=== PATIENT | male | born 1955 | race Caucasian/White ===

== ENCOUNTER 2017-09-26 16:00 | Inpatient (IN) | payer MEDICAID, OTHER ==
[~2017-09-26] VITALS: Ht 175.3 cm; Wt 81.0 kg
[~2017-09-26 16:00] MED LIST: APIX5TAB PO; ATEN-60 PO
[2017-09-26 16:56] LABS: Basophils # (auto) 0 uL; Basophils % (auto) 0.2 % (0.0-2.0); Eosinophils # (auto) 0 uL; Hematocrit 43.4 % (41.0-53.0); Hemoglobin 14.9 g/dL (13.5-17.5); Lymphocytes # (auto) 0.6 uL; Lymphocytes % (auto) 5.5 % (10.0-50.0); Mean Corpuscular Hemoglobin 30.3 pg (28.0-32.0); Mean Corpuscular Hgb Conc. 34.4 g/dL (32.0-36.0); Mean Corpuscular Volume 88.2 fL (80.0-100.0); Monocytes # (auto) 0.6 uL; Monocytes % (auto) 5.2 % (0.0-12.0); Neutrophils # (auto) 9.8 uL; Neutrophils % (auto) 89.1 % (37.0-80.0); Platelet Count (auto) 134 10^3/uL (140-450); Red Blood Cells 4.92 10^6/uL (4.5-5.90); Red Cell Distribution Width 14.1 % (11.8-14.3)
[2017-09-26 17:12] LABS: Alanine Aminotransferase 212 U/L (16-61); Albumin 3.2 g/dL (3.4-5.0); Anion Gap 16 (5-15); Aspartate Aminotransferase 352 U/L (15-37); BUN/Creatinine Ratio 26.1; Blood Alcohol < 3.0 mg/dL (0-5); Blood Urea Nitrogen 18 mg/dL (7-18); Calcium 8.2 mg/dL (8.5-10.1); Carbon Dioxide 22 mmol/L (21-32); Chloride 84 mmol/L (98-107); GFR African American 150 mL/min; GFR Non-African American 124 mL/min; Glucose 134 mg/dL (74-106); Magnesium 1.7 mg/dL (1.6-2.6); Potassium 3.2 mmol/L (3.5-5.1); Sodium 122 mmol/L (136-145)
[2017-09-26 17:15] LABS: Alkaline Phosphatase 103 U/L (45-117); Bilirubin, Total 2.1 mg/dL (0.2-1.0)
[2017-09-26] MEDS ORDERED: THIAMINE INJ 100 MG, MULTIPLE VITAMIN 10 ML, FOLIC ACID 1 MG, MAGNESIUM SULF SDV 50% 8 ... IV STA ×5 (19:16)
[2017-09-26] MEDS ORDERED: SODIUM CHLORIDE 0.9% 1,000 ML IV ONE (19:30)
[2017-09-26] MEDS ORDERED: MVI in SODIUM CHLORIDE 0.9% 1,010 ML ONE (20:15)
[2017-09-26 22:21] LABS: Urine Bacteria NONE SEEN /hpf (None Seen); Urine Blood 2+ /uL (Negative); Urine Mucus FEW (None Seen); Urine Specific Gravity 1.027 (1.001-1.035); Urine WBC 10 /hpf (0 - 3)
[2017-09-26 22:32] LABS: Alcohol, Urine < 3.0 mg/dL (0-5); Amphetamine Screen, Urine NEGATIVE (NEGATIVE); Barbiturate Scree,Urine NEGATIVE (NEGATIVE); Benzodiazephine Screen, Urine NEGATIVE (NEGATIVE); Cannabinoid Screen, Urine NEGATIVE (NEGATIVE); Cocaine Screen, Urine NEGATIVE (NEGATIVE); Opiate Scree,Urine NEGATIVE (NEGATIVE); Phencyclidine Screen, Urine NEGATIVE (NEGATIVE)
[2017-09-26] MEDS ORDERED: POTASSIUM CHL 20 Meq TABLET PO ONE ×2 (23:00→23:02)
[2017-09-27] MEDS ORDERED: ONDANSETRON HCL 4 MG/2 ML VIAL IV PRN (02:45)
[2017-09-27] MEDS ORDERED: SODIUM CHLORIDE 0.9% 1,000 ML IV SCH (05:00)
[2017-09-27 05:34] VITALS: BP 145/93
[2017-09-27 06:51] LABS: Basophils # (auto) 0 uL; Basophils % (auto) 0.1 % (0.0-2.0); Eosinophils # (auto) 0 uL; Eosinophils % (auto) 0.1 % (0.0-7.0); Hematocrit 42.2 % (41.0-53.0); Hemoglobin 14.4 g/dL (13.5-17.5); Lymphocytes # (auto) 0.7 uL; Lymphocytes % (auto) 8.4 % (10.0-50.0); Mean Corpuscular Hemoglobin 30.4 pg (28.0-32.0); Mean Corpuscular Hgb Conc. 34.1 g/dL (32.0-36.0); Monocytes # (auto) 0.5 uL; Monocytes % (auto) 6.5 % (0.0-12.0); Neutrophils # (auto) 6.6 uL; Neutrophils % (auto) 84.9 % (37.0-80.0); Nucleated Red Blood Cells % 0.1 %; Platelet Count (auto) 131 10^3/uL (140-450); Red Blood Cells 4.74 10^6/uL (4.5-5.90); White Blood Cell 7.8 10^3/uL (4.4-10.8)
[2017-09-27 07:22] LABS: Calcium 8.4 mg/dL (8.5-10.1); Potassium 3.3 mmol/L (3.5-5.1)
[2017-09-27 07:25] LABS: BUN/Creatinine Ratio 20.3
[2017-09-27 07:28] LABS: Bilirubin, Total 1.7 mg/dL (0.2-1.0); Total Protein 6.6 g/dL (6.4-8.2)
[2017-09-27 09:00] VITALS: BP 136/75
[2017-09-27] MEDS ORDERED: THIAMINE HCL 100 MG/ML 2ML VIAL IV SCH (10:00)
[2017-09-27] MEDS: LOSARTAN POTASSIUM 50 MG TAB PO SCH (10:00)
[2017-09-27] MEDS: cefTRIAXone 1GM/10ml IVPUSH 10 ML IV SCH (10:44)
[2017-09-27] MEDS: FOLIC ACID 1 MG TAB PO SCH (10:46)
[2017-09-27] MEDS: APIXABAN 5 MG TAB PO SCH ×2 (10:46→21:46)
[2017-09-27] MEDS: MULTIPLE VITAMIN TAB PO SCH (10:46)
[2017-09-27] MEDS: D5W/SOD CHL 0.45%/KCL 20MEQ 1,000 ML IV SCH (12:00)
[2017-09-27] MEDS: chlordiazePOXIDE HCL 25 MG CAP PO PRN ×2 (12:01→18:21)
[2017-09-27] MEDS ORDERED: THIAMINE HCL 100 MG TAB PO ONE (12:45)
[2017-09-27 13:00] VITALS: BP 130/59
[2017-09-27 17:00] VITALS: BP 130/59
[2017-09-27] MEDS: ATORVASTATIN 20 MG TAB PO SCH (21:46)
[2017-09-27 22:00] VITALS: BP 125/69
[2017-09-28] MEDS: chlordiazePOXIDE HCL 25 MG CAP PO PRN ×2 (01:55→10:09)
[2017-09-28 05:00] VITALS: BP 119/83
[2017-09-28] MEDS: D5W/SOD CHL 0.45%/KCL 20MEQ 1,000 ML IV SCH (06:14)
[2017-09-28 07:10] LABS: Basophils # (auto) 0 uL; Basophils % (auto) 0.2 % (0.0-2.0); Eosinophils # (auto) 0.1 uL; Eosinophils % (auto) 1.4 % (0.0-7.0); Hematocrit 38.5 % (41.0-53.0); Hemoglobin 13.2 g/dL (13.5-17.5); Lymphocytes # (auto) 0.9 uL; Lymphocytes % (auto) 17.1 % (10.0-50.0); Mean Corpuscular Hemoglobin 30.6 pg (28.0-32.0); Mean Corpuscular Hgb Conc. 34.2 g/dL (32.0-36.0); Mean Corpuscular Volume 89.3 fL (80.0-100.0); Monocytes # (auto) 0.5 uL; Monocytes % (auto) 10.5 % (0.0-12.0); Neutrophils # (auto) 3.5 uL; Neutrophils % (auto) 70.8 % (37.0-80.0); Nucleated Red Blood Cells % 0.2 %; Platelet Count (auto) 101 10^3/uL (140-450); Red Blood Cells 4.31 10^6/uL (4.5-5.90); Red Cell Distribution Width 14.2 % (11.8-14.3)
[2017-09-28 07:47] LABS: Albumin 2.4 g/dL (3.4-5.0); BUN/Creatinine Ratio 16.2; Bilirubin, Total 1.2 mg/dL (0.2-1.0); Calcium 7.8 mg/dL (8.5-10.1); Magnesium 2.4 mg/dL (1.6-2.6); Total Protein 5.6 g/dL (6.4-8.2)
[2017-09-28 07:58] LABS: Potassium 2.8 mmol/L (3.5-5.1)
[2017-09-28 08:00] VITALS: BP 132/77
[2017-09-28] MEDS ORDERED: POTASSIUM CHL 20 Meq TABLET PO ONE (08:30)
[2017-09-28] MEDS ORDERED: PROMETHAZINE HCL 25 MG/ML 1ML IV PRN (09:00)
[2017-09-28] MEDS ORDERED: POTASSIUM CHLORIDE 40 MEQ, LIDOCAINE 1% (LOCAL ANESTH.) 4 ML in SODIUM CHL 0.9% 100 ML IV ONE (09:00)
[2017-09-28] MEDS: FOLIC ACID 1 MG TAB PO SCH (10:09)
[2017-09-28] MEDS: THIAMINE HCL 100 MG TAB PO SCH (10:10)
[2017-09-28] MEDS: MULTIPLE VITAMIN TAB PO SCH (10:11)
[2017-09-28] MEDS: LOSARTAN POTASSIUM 50 MG TAB PO SCH (10:11)
[2017-09-28] MEDS: APIXABAN 5 MG TAB PO SCH ×2 (10:12→21:14)
[2017-09-28] MEDS: cefTRIAXone 1GM/10ml IVPUSH 10 ML IV SCH (10:40)
[2017-09-28 12:00] VITALS: BP 129/60
[2017-09-28 17:03] VITALS: BP 117/70
[2017-09-28] MEDS: ATORVASTATIN 20 MG TAB PO SCH (21:14)
[2017-09-28] MEDS: LORazepam 2MG/ML-1ML VIAL IV PRN (21:15)
[2017-09-28 22:00] VITALS: BP 134/78
[2017-09-29] MEDS: D5W/SOD CHL 0.45%/KCL 20MEQ 1,000 ML IV SCH (04:48)
[2017-09-29 05:00] VITALS: BP 126/70
[2017-09-29] MEDS: LORazepam 2MG/ML-1ML VIAL IV PRN (05:16)
[2017-09-29 06:09] LABS: Albumin 2.7 g/dL (3.4-5.0); BUN/Creatinine Ratio 22.6; Calcium 7.9 mg/dL (8.5-10.1); Potassium 3.3 mmol/L (3.5-5.1)
[2017-09-29 06:12] LABS: Bilirubin, Total 0.8 mg/dL (0.2-1.0); Total Protein 5.8 g/dL (6.4-8.2)
[2017-09-29 08:00] VITALS: BP 137/77
[2017-09-29] MEDS ORDERED: POTASSIUM CHL 20 Meq TABLET PO ONE (08:45)
[2017-09-29] MEDS ORDERED: POTASSIUM CHLORIDE 40 MEQ, LIDOCAINE 1% (LOCAL ANESTH.) 4 ML in SODIUM CHL 0.9% 100 ML IV ONE (09:30)
[2017-09-29] MEDS: FOLIC ACID 1 MG TAB PO SCH (09:42)
[2017-09-29] MEDS: APIXABAN 5 MG TAB PO SCH ×2 (09:42→21:43)
[2017-09-29] MEDS: LOSARTAN POTASSIUM 50 MG TAB PO SCH (09:42)
[2017-09-29] MEDS: THIAMINE HCL 100 MG TAB PO SCH (09:43)
[2017-09-29] MEDS: cefTRIAXone 1GM/10ml IVPUSH 10 ML IV SCH (09:43)
[2017-09-29] MEDS: MULTIPLE VITAMIN TAB PO SCH (09:43)
[2017-09-29 12:00] VITALS: BP 149/87
[2017-09-29] MEDS ORDERED: VANCOMYCIN HCL 125MG/5ML ORAL SOL GT SCH (13:30)
[2017-09-29] MEDS: VANCOMYCIN HCL 125MG/5ML ORAL SOL GT SCH ×2 (15:58→19:47)
[2017-09-29] MEDS: metroNIDAZOLE 500 MG TAB PO SCH ×2 (15:58→21:43)
[2017-09-29 17:18] VITALS: BP 147/90
[2017-09-29] MEDS: ATORVASTATIN 20 MG TAB PO SCH (21:43)
[2017-09-29 22:00] VITALS: BP 148/87
[2017-09-30] MEDS: D5W/SOD CHL 0.45%/KCL 20MEQ 1,000 ML IV SCH (01:48)
[2017-09-30] MEDS: VANCOMYCIN HCL 125MG/5ML ORAL SOL GT SCH ×3 (01:49→14:48)
[2017-09-30 05:00] VITALS: BP 151/90
[2017-09-30] MEDS: metroNIDAZOLE 500 MG TAB PO SCH ×2 (05:40→14:48)
[2017-09-30 06:22] LABS: Hematocrit 37.9 % (41.0-53.0); Hemoglobin 12.8 g/dL (13.5-17.5); Mean Corpuscular Hemoglobin 30.4 pg (28.0-32.0); Mean Corpuscular Hgb Conc. 33.7 g/dL (32.0-36.0); Mean Corpuscular Volume 90.4 fL (80.0-100.0); Platelet Count (auto) 144 10^3/uL (140-450); Red Blood Cells 4.19 10^6/uL (4.5-5.90); White Blood Cell 5.7 10^3/uL (4.4-10.8)
[2017-09-30 06:27] LABS: Eosinophils % (manual) 0 (0-7)
[2017-09-30 06:28] LABS: Basophils % (manual) 0 (0.0-2.0); Blast Cells 0; Metamyelocytes % 0; Myelocytes % 0; Promyelocytes % 0; Reactive Lymphocytes 0
[2017-09-30 06:41] LABS: Albumin 2.7 g/dL (3.4-5.0); BUN/Creatinine Ratio 16.7; Bilirubin, Total 0.7 mg/dL (0.2-1.0); Calcium 8.2 mg/dL (8.5-10.1); Magnesium 2.4 mg/dL (1.6-2.6); Potassium 3.8 mmol/L (3.5-5.1); Total Protein 6.2 g/dL (6.4-8.2)
[2017-09-30 07:03] LABS: Band Neutrophils % (manual) 0; Lymphocytes % (manual) 20 (10.0-50.0); Monocytes % (manual) 6 (0-12)
[2017-09-30 09:00] VITALS: BP 157/91
[2017-09-30] MEDS: cefTRIAXone 1GM/10ml IVPUSH 10 ML IV SCH (09:58)
[2017-09-30] MEDS: THIAMINE HCL 100 MG TAB PO SCH (09:59)
[2017-09-30] MEDS: FOLIC ACID 1 MG TAB PO SCH (09:59)
[2017-09-30] MEDS: MULTIPLE VITAMIN TAB PO SCH (09:59)
[2017-09-30] MEDS: APIXABAN 5 MG TAB PO SCH (10:00)
[2017-09-30] MEDS: LOSARTAN POTASSIUM 50 MG TAB PO SCH (10:00)
[2017-09-30] MEDS ORDERED: PROPRANOLOL HCL 20 MG TAB PO ONE ×2 (11:45→13:00)
[2017-09-30 13:00] VITALS: BP 125/86
[2017-09-30 14:10] VITALS: BP 154/98
== END 2017-09-30 15:40 | disposition home or self-care (01) | DRG 280 ==
LOC: ER 16:03 → CENTRAL 16:04
PROVIDERS: ADMIT Nurse Practitioner Family; ATTEND Internal Medicine
DX: K70.9 Alcoholic liver disease, unspecified (principal); F10.231 Alcohol dependence with withdrawal delirium; K83.1 Obstruction of bile duct; E44.0 Moderate protein-calorie malnutrition; A04.72 Enterocolitis due to Clostridium difficile, not specified as recurrent; D69.59 Other secondary thrombocytopenia; D69.6 Thrombocytopenia, unspecified; E87.1 Hypo-osmolality and hyponatremia; K74.60 Unspecified cirrhosis of liver; D64.9 Anemia, unspecified; E87.6 Hypokalemia; N39.0 Urinary tract infection, site not specified; I10 Essential (primary) hypertension; I25.2 Old myocardial infarction; Z82.3 Family history of stroke; Z82.49 Family history of ischemic heart disease and other diseases of the circulatory system; Z86.711 Personal history of pulmonary embolism; Z83.3 Family history of diabetes mellitus; Z86.718 Personal history of other venous thrombosis and embolism; Z86.73 Personal history of transient ischemic attack (TIA), and cerebral infarction without residual deficits; Z95.1 Presence of aortocoronary bypass graft; Z79.01 Long term (current) use of anticoagulants
CPT/HCPCS: 36415; 70450; 76705; 80053; 80307; 80320; 81001; 82140; 83735; 85007; 85025; 85027; 87086; 87493; 93005; 96361; 96365; 96375; J2001